=== PATIENT | male | born 1990 | race American Indian/Alaskan Native ===

== ENCOUNTER 2017-06-08 16:18 | Emergency (ER) | payer SELFPAY ==
[2017-06-08] MEDS ORDERED: D5NS 0.2% 1,000 ML IV SCH (17:00)
[2017-06-08] MEDS ORDERED: NACL 0.9% 1000 ML 1,000 ML IV ONE (21:37)
[2017-06-08] MEDS ORDERED: MORPHINE IV ONE ×2 (21:37→23:58)
[2017-06-08] MEDS ORDERED: BENADRYL IV ONE ×2 (21:37→23:58)
--- NOTE | 2017-06-08 21:39 | Emergency Department Report ---
ED General Adult HPI - General Chief complaint: Sickle Cell Crisis Stated complaint: SICKLE CELL CRISIS Time Seen by Provider: 06/08/17 21:02 Source: patient Mode of arrival: Ambulatory Limitations: No Limitations - History of Present Illness Initial comments: 26-year-old male here with sickle cell pain crisis. Patient states she has known sickle cell and takes hydroxyurea folic acid and oxycodone regularly. He started having pain approximately 2 days ago. Pain in the legs and arms. Denies chest pain. Denies shortness of breath. Denies fevers chills nausea vomiting. -: Gradual Location: upper extremity, lower extremity Radiation: non-radiation Quality: aching Consistency: constant Improves with: medication Worsens with: none Treatments Prior to Arrival: other - Related Data Home Medications Medication Instructions Recorded Confirmed Last Taken Folic Acid [Folvite] 1 mg PO QDAY 11/06/15 11/06/15 Unknown Previous Rx's Medication Instructions Recorded Last Taken Type Morphine ER [Ms Contin ER] 30 mg PO Q8HR #20 tablet 11/07/15 Unknown Rx oxyCODONE /ACETAMINOPHEN [Percocet 1 tab PO Q6H PRN #30 tablet 11/07/15 Unknown Rx 5/325 mg] Allergies Allergy/AdvReac Type Severity Reaction Status Date / Time ketorolac tromethamine Allergy Swelling Verified 06/08/17 16:50 [From Toradol] ED Review of Systems ROS: Stated complaint: SICKLE CELL CRISIS Other details as noted in HPI Comment: All other systems reviewed and negative Constitutional: denies: chills, fever Eyes: denies: eye pain, eye discharge, vision change ENT: denies: ear pain, throat pain Respiratory: denies: cough, shortness of breath, wheezing Cardiovascular: denies: chest pain, palpitations Endocrine: no symptoms reported Gastrointestinal: denies: abdominal pain, nausea, diarrhea Genitourinary: denies: urgency, dysuria Musculoskeletal: 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) - Family History Family history: no significant - Social History Smoking Status: Current Some Day Smoker Substance Use Type: Alcohol, Prescribed - Medications Home Medications: Home Medications Medication Instructions Recorded Confirmed Last Taken Type Folic Acid [Folvite] 1 mg PO QDAY 11/06/15 11/06/15 Unknown History Morphine ER [Ms Contin ER] 30 mg PO Q8HR #20 tablet 11/07/15 Unknown Rx oxyCODONE /ACETAMINOPHEN [Percocet 1 tab PO Q6H PRN #30 tablet 11/07/15 Unknown Rx 5/325 mg] ED Physical Exam - General Limitations: No Limitations General appearance: alert, in no apparent distress - Head Head exam: Present: atraumatic, normocephalic - Eye Eye exam: Present: normal appearance. Absent: scleral icterus, conjunctival injection - ENT ENT exam: Present: mucous membranes moist - Neck Neck exam: Present: normal inspection. Absent: lymphadenopathy - Respiratory Respiratory exam: Present: normal lung sounds bilaterally. Absent: respiratory distress - Cardiovascular Cardiovascular Exam: Present: regular rate, normal rhythm. Absent: systolic murmur, diastolic murmur, rubs, gallop - GI/Abdominal GI/Abdominal exam: Present: soft, normal bowel sounds - Rectal Rectal exam: Present: deferred - Extremities Exam Extremities exam: Present: normal inspection - Back Exam Back exam: Present: normal inspection - Neurological Exam Neurological exam: Present: alert, oriented X3 - Psychiatric Psychiatric exam: Present: normal affect, normal mood - Skin Skin exam: Present: warm, dry, intact, normal color. Absent: rash ED Course Vital Signs 06/08/17 06/08/17 06/08/17 16:52 23:14 23:44 Temperature 98.8 F Pulse Rate 95 H Respiratory 17 18 18 Rate Blood Pressure 128/86 O2 Sat by Pulse 100 Oximetry 06/08/17 23:55 Temperature Pulse Rate Respiratory 12 Rate Blood Pressure O2 Sat by Pulse 99 Oximetry ED Medical Decision Making - Lab Data Result diagrams: 06/08/17 22:15 06/08/17 22:15 Labs 06/08/17 06/08/17 22:15 22:15 WBC 9.9 RBC 4.38 Hgb 12.4 Hct 37.2 MCV 85 MCH 28 MCHC 33 RDW 16.3 H Plt Count 365 Lymph % (Auto) 30.6 [place] % (Auto) 9.0 H Eos % (Auto) 1.7 Baso % (Auto) 0.7 Lymph # 3.0 [place] # 0.9 H Eos # 0.2 Baso # 0.1 Seg Neutrophils % 58.0 Seg Neutrophils # 5.7 Percent Retic 3.03 H Sodium 141 Potassium 4.0 Chloride 103.6 Carbon Dioxide 23 Anion Gap 18 BUN 13 Creatinine 0.8 Estimated GFR > 60 BUN/Creatinine Ratio 16.25 Glucose 84 Calcium 9.0 - Medical Decision Making 18-year-old male here with sickle cell crisis. I do not suspect infection or acute chest syndrome. Plan to treat with IV fluids and IV narcotics. We will reassess. Patient feeling better after single round of medications. Plan to medicate with an initial round of medications and will likely discharge patient home. Portions of this chart were dictated with dictation software. There may be dictation errors contained within this note. Critical care attestation.: If time is entered above; I have spent that time in minutes in the direct care of this critically ill patient, excluding procedure time. ED Disposition Clinical Impression: Sickle cell pain crisis Disposition: DC-01 TO HOME OR SELFCARE Is pt being admited?: No Condition: Stable Instructions: Sickle Cell Crisis (ED) Additional Instructions: Please follow up with your regular doctor Referrals: PRIMARY MD ASIA [Primary Care Provider] - 3-5 Days
[2017-06-08 22:30] LABS: Basophils % (Auto) 0.7 % (0.0-1.8); Eosinophils % (Auto) 1.7 % (0.0-4.3); Hematocrit 37.2 % (35.5-45.6); Hemoglobin 12.4 gm/dl (11.8-15.2); Mean Corpuscular HGB Conc 33 % (32-34); Mean Corpuscular Hemoglobin 28 pg (28-32); Mean Corpuscular Volume 85 fl (84-94); Platelet Count 365 K/mm3 (140-440); Red Blood Count 4.38 M/mm3 (3.65-5.03); Red Cell Distribution Width 16.3 % (13.2-15.2); Reticulocyte % 3.03 % (0.78-2.58); White Blood Count 9.9 K/mm3 (4.5-11.0)
[2017-06-08 22:40] LABS: Anion Gap 18 mmol/L; BUN/Creatinine Ratio 16.25; Blood Urea Nitrogen 13 mg/dL (9-20); Carbon Dioxide 23 mmol/L (22-30); Chloride 103.6 mmol/L (98-107); Glucose 84 mg/dL (75-100); Sodium 141 mmol/L (137-145)
[2017-06-09 01:34] VITALS: BP 126/82
== END 2017-06-09 01:41 | disposition home or self-care (01) ==
LOC: ED 16:18
DX: D57.00 Hb-SS disease with crisis, unspecified (principal); F17.210 Nicotine dependence, cigarettes, uncomplicated; Z88.6 Allergy status to analgesic agent
CPT/HCPCS: 36415; 80048; 85025; 85045; 96361; 96374; 96375; 99283; J1200; J2270; J7030

== ENCOUNTER 2017-08-06 23:34 | Emergency (ER) | payer MEDICAID ==
[2017-08-06 23:50] VITALS: BP 114/74
== END 2017-08-07 | disposition left against medical advice (07) ==
LOC: ED 23:34
DX: Z53.21 Procedure and treatment not carried out due to patient leaving prior to being seen by health care provider (principal)

== ENCOUNTER 2017-08-07 18:24 | Emergency (ER) | payer SELFPAY ==
[2017-08-07] MEDS ORDERED: D5NS 0.2% 1,000 ML IV SCH (19:00)
[2017-08-07 19:10] LABS: Eosinophils % (Auto) 1.7 % (0.0-4.3); Hematocrit 39.2 % (35.5-45.6); Hemoglobin 12.8 gm/dl (11.8-15.2); Mean Corpuscular HGB Conc 33 % (32-34); Mean Corpuscular Hemoglobin 28 pg (28-32); Mean Corpuscular Volume 85 fl (84-94); Platelet Count 403 K/mm3 (140-440); Red Blood Count 4.59 M/mm3 (3.65-5.03); Red Cell Distribution Width 15.4 % (13.2-15.2); Reticulocyte % 3.34 % (0.78-2.58); White Blood Count 12.3 K/mm3 (4.5-11.0)
[2017-08-08] MEDS ORDERED: BENADRYL IV ONE (02:09)
[2017-08-08] MEDS ORDERED: DILAUDID IV ONE ×3 (02:09→02:57)
[2017-08-08] MEDS ORDERED: PHENERGAN PO ONE (02:10)
--- NOTE | 2017-08-08 03:11 | Emergency Department Report ---
ED General Adult HPI - General Chief complaint: Sickle Cell Crisis Stated complaint: SICKLE CELL CRISIS Time Seen by Provider: 08/08/17 02:54 Source: patient Mode of arrival: Ambulatory Limitations: No Limitations - History of Present Illness Initial comments: 26-year-old male the past medical history of pulmonary embolism and sickle beta thalassemia and previous splenectomy presents to the hospital complaints of sickle cell crisis since yesterday. Patient complains of pain to bilateral legs and right arm. Pain is constant, rated myself as 10 in intensity without aggravating or alleviating factors. Patient continue oxycodone without relief. Patient also takes penicillin for splenectomy. Patient denies fever, chest pain, shortness of breath, or weakness. PMD: [facility] Severity scale (0 -10): 6 - Related Data Home Medications Medication Instructions Recorded Confirmed Last Taken Folic Acid [Folvite] 1 mg PO QDAY 11/06/15 11/06/15 Unknown Previous Rx's Medication Instructions Recorded Last Taken Type Morphine ER [Ms Contin ER] 30 mg PO Q8HR #20 tablet 11/07/15 Unknown Rx oxyCODONE /ACETAMINOPHEN [Percocet 1 tab PO Q6H PRN #30 tablet 11/07/15 Unknown Rx 5/325 mg] Allergies Allergy/AdvReac Type Severity Reaction Status Date / Time ketorolac tromethamine Allergy Swelling Verified 06/08/17 16:50 [From Toradol] ED Review of Systems ROS: Stated complaint: SICKLE CELL CRISIS Other details as noted in HPI Comment: All other systems reviewed and negative Other: Constitutional: No fevers chills Eyes: No eye pain visual changes ENT: No ear pain or throat pain Neck: Denies pain Respiratory: Denies cough wheezing shortness of breath Cardiovascular: Denies chest pain, palpitations, syncope GI: Denies abdominal pain, nausea, vomiting, diarrhea : Denies dysuria Musculoskeletal: As per HPI Skin: Denies rash, lesions, erythema Neurologic: Denies headache, numbness, weakness Psychiatric: Denies suicidal ideation, hallucinations ED Past Medical Hx - Past Medical History Hx Diabetes: No Hx Pulmonary Embolism: Yes 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) Hx Asthma: No Hx COPD: No Additional medical history: PE 2013 - Surgical History 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) - Social History Smoking Status: Never Smoker Substance Use Type: None - Medications Home Medications: Home Medications Medication Instructions Recorded Confirmed Last Taken Type Folic Acid [Folvite] 1 mg PO QDAY 11/06/15 11/06/15 Unknown History Morphine ER [Ms Contin ER] 30 mg PO Q8HR #20 tablet 11/07/15 Unknown Rx oxyCODONE /ACETAMINOPHEN [Percocet 1 tab PO Q6H PRN #30 tablet 11/07/15 Unknown Rx 5/325 mg] ED Physical Exam - General Limitations: No Limitations - Other Other exam information: General: No limitations, patient is alert in no acute distress Head exam: Atraumatic, normocephalic Eyes exam: Normal appearance, ENT: Moist mucous membrane, normal oropharynx Neck exam: Normal inspection, full range of motion, no meningismus nontender Respiratory exam: Clear to auscultation bilateral, no wheezes, rales, crackles Cardiovascular: Normal rate and rhythm, normal heart sounds Abdomen: Soft, nondistended, and nontender, with normal bowel sounds, no rebound, or guarding Extremity: Full range of motion normal inspection no deformity Back: Normal Inspection, full range of motion, no tenderness Neurologic: Alert, oriented x3, cranial nerves intact, no motor or sensory deficit Psychiatric: normal affect, normal mood Skin: Warm, dry, intact ED Course Vital Signs 08/07/17 08/08/17 18:31 02:15 Temperature 99.5 F 98.4 F Pulse Rate 85 68 Respiratory 20 18 Rate Blood Pressure 115/76 Blood Pressure 127/90 [Left] O2 Sat by Pulse 99 98 Oximetry - Reevaluation(s) Reevaluation #1: 08/08/17 03:10 Patient received 3 separate doses of Dilaudid 1 mg, Phenergan, and Benadryl with improvement in symptoms ED Medical Decision Making - Lab Data Result diagrams: 08/07/17 18:41 Lab Results 08/07/17 08/07/17 Range/Units 18:41 18:47 WBC 12.3 H (4.5-11.0) K/mm3 RBC 4.59 (3.65-5.03) M/mm3 Hgb 12.8 (11.8-15.2) gm/dl Hct 39.2 (35.5-45.6) % MCV 85 (84-94) fl MCH 28 (28-32) pg MCHC 33 (32-34) % RDW 15.4 H (13.2-15.2) % Plt Count 403 (140-440) K/mm3 Lymph % (Auto) 23.1 (13.4-35.0) % [place] % (Auto) 5.5 (0.0-7.3) % Eos % (Auto) 1.7 (0.0-4.3) % Baso % (Auto) 1.0 (0.0-1.8) % Lymph # 2.8 (1.2-5.4) K/mm3 [place] # 0.7 (0.0-0.8) K/mm3 Eos # 0.2 (0.0-0.4) K/mm3 Baso # 0.1 (0.0-0.1) K/mm3 Seg Neutrophils % 68.7 (40.0-70.0) % Seg Neutrophils # 8.4 H (1.8-7.7) K/mm3 Percent Retic 3.34 H (0.78-2.58) % Blood Type AB POSITIVE Antibody Screen TNR [place] Antibody Screen Negative - Medical Decision Making Patient has elevation of the tick count. No significant leukocytosis. No anemia. Patient feels better with ED treatment and wants to go home and continue his current Percocet and [facility] follow-up - Differential Diagnosis sickle cell crisis, anemia, infection, aplastic crisis Critical Care Time: No Critical care attestation.: If time is entered above; I have spent that time in minutes in the direct care of this critically ill patient, excluding procedure time. ED Disposition Clinical Impression: Sickle cell crisis Disposition: TO HOME OR SELFCARE Is pt being admited?: No Does the pt Need Aspirin: No Condition: Stable Instructions: Sickle Cell Crisis (ED) Additional Instructions: Continue current Percocet and follow-up with your [facility] physician. Return if symptoms worsen as indicated by her discharged instructions Referrals: anisa bajwa md [Other] - 3-5 Days Time of Disposition: 03:11
[2017-08-08 11:27] VITALS: BP 124/74
== END 2017-08-08 03:19 | disposition home or self-care (01) ==
LOC: ED 18:24
DX: D57.00 Hb-SS disease with crisis, unspecified (principal); Z88.6 Allergy status to analgesic agent
CPT/HCPCS: 36415; 85025; 85045; 86850; 86900; 86901; 96374; 96375; 96376; 99283; J1170; J1200; Q0169

== ENCOUNTER 2017-10-31 18:53 | Emergency (ER) | payer MEDICAID ==
[2017-10-31 20:30] VITALS: BP 110/65
[2017-10-31] MEDS ORDERED: D5NS 0.2% 1,000 ML IV SCH (21:00)
== END 2017-10-31 23:30 | disposition left against medical advice (07) ==
LOC: ED 18:53
DX: Z53.21 Procedure and treatment not carried out due to patient leaving prior to being seen by health care provider (principal)

== ENCOUNTER 2018-01-21 09:17 | Emergency (ER) | payer MEDICAID ==
--- NOTE | 2018-01-21 10:50 | Emergency Department Report ---
ED General Adult HPI - General Chief complaint: Sickle Cell Crisis Stated complaint: SICKLE CELL PAIN Time Seen by Provider: 01/21/18 10:49 Source: patient Mode of arrival: Ambulatory Limitations: No Limitations - History of Present Illness Initial comments: Patient is a 27-year-old male with history of sickle cell anemia who presents with sickle cell pain. Patient states that he has pain in his legs and his arms and his back. The pain is an 8 out of 10 achy pain that does not radiate nothing makes it better or worse. Patient states the pain is typical for his sickle cell pain. He also states that he has some nausea and vomiting. 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 - Related Data Home Medications Medication Instructions Recorded Confirmed Last Taken Folic Acid [Folvite] 1 mg PO QDAY 11/06/15 11/06/15 Unknown Previous Rx's Medication Instructions Recorded Last Taken Type Morphine ER [Ms Contin ER] 30 mg PO Q8HR #20 tablet 11/07/15 Unknown Rx oxyCODONE /ACETAMINOPHEN [Percocet 1 tab PO Q6H PRN #30 tablet 11/07/15 Unknown Rx 5/325 mg] Allergies Allergy/AdvReac Type Severity Reaction Status Date / Time ketorolac tromethamine Allergy Swelling Verified 06/08/17 16:50 [From Toradol] ED Review of Systems ROS: Stated complaint: SICKLE CELL PAIN Other details as noted in HPI Constitutional: denies: chills, fever Eyes: denies: eye pain, eye discharge, vision change ENT: denies: ear pain, throat pain Respiratory: denies: cough, shortness of breath, wheezing Cardiovascular: denies: chest pain, palpitations Endocrine: no symptoms reported Gastrointestinal: denies: abdominal pain, nausea, diarrhea Genitourinary: denies: urgency, dysuria Musculoskeletal: myalgia. 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) - Social History Smoking Status: Never Smoker Substance Use Type: None - Medications Home Medications: Home Medications Medication Instructions Recorded Confirmed Last Taken Type Folic Acid [Folvite] 1 mg PO QDAY 11/06/15 11/06/15 Unknown History Morphine ER [Ms Contin ER] 30 mg PO Q8HR #20 tablet 11/07/15 Unknown Rx oxyCODONE /ACETAMINOPHEN [Percocet 1 tab PO Q6H PRN #30 tablet 11/07/15 Unknown Rx 5/325 mg] ED Physical Exam - General Limitations: No Limitations General appearance: alert, in no apparent distress - Head Head exam: Present: atraumatic, normocephalic - Eye Eye exam: Present: normal appearance - ENT ENT exam: Present: mucous membranes moist - Neck Neck exam: Present: normal inspection - Respiratory Respiratory exam: Present: normal lung sounds bilaterally. Absent: respiratory distress - Cardiovascular Cardiovascular Exam: Present: regular rate, normal rhythm, other (right chest port ). Absent: systolic murmur, diastolic murmur, rubs, gallop - GI/Abdominal GI/Abdominal exam: Present: soft, normal bowel sounds - Rectal Rectal exam: Present: deferred - Extremities Exam Extremities exam: Present: normal inspection - Back Exam Back exam: Present: normal inspection - Neurological Exam Neurological exam: Present: alert, oriented X3 - Psychiatric Psychiatric exam: Present: normal affect, normal mood - Skin Skin exam: Present: warm, dry, intact, normal color. Absent: rash ED Course Vital Signs 01/21/18 01/21/18 01/21/18 10:04 11:27 12:56 Temperature 99.7 F H 98.6 F Pulse Rate 84 77 74 Respiratory 20 18 18 Rate Blood Pressure 114/73 Blood Pressure 164/42 [Right] O2 Sat by Pulse 98 Oximetry - Reevaluation(s) Reevaluation #1: 01/21/18 12:01 Pt's pain has improved ED Medical Decision Making - Lab Data Result diagrams: 01/21/18 Unknown Lab Results 01/21/18 Range/Units Unknown WBC 5.8 (4.5-11.0) K/mm3 RBC 3.81 (3.65-5.03) M/mm3 Hgb 10.5 L (11.8-15.2) gm/dl Hct 32.1 L (35.5-45.6) % MCV 84 (84-94) fl MCH 28 (28-32) pg MCHC 33 (32-34) % RDW 16.3 H (13.2-15.2) % Plt Count 484 H (140-440) K/mm3 Add Manual Diff Complete Total Counted 100 Seg Neuts % (Manual) 59.0 (40.0-70.0) % Band Neutrophils % 1.0 % Lymphocytes % (Manual) 26.0 (13.4-35.0) % Reactive Lymphs % (Man) 3.0 % Monocytes % (Manual) 9.0 H (0.0-7.3) % Eosinophils % (Manual) 0 (0.0-4.3) % Basophils % (Manual) 2.0 H (0.0-1.8) % Metamyelocytes % 0 % Myelocytes % 0 % Promyelocytes % 0 % Blast Cells % 0 % Nucleated RBC % 3.0 H (0.0-0.9) % Seg Neutrophils # Man 0.0 L (1.8-7.7) K/mm3 Band Neutrophils # 0.0 K/mm3 Lymphocytes # (Manual) 0.0 L (1.2-5.4) K/mm3 Abs React Lymphs (Man) 0.0 K/mm3 Monocytes # (Manual) 0.0 (0.0-0.8) K/mm3 Eosinophils # (Manual) 0.0 (0.0-0.4) K/mm3 Basophils # (Manual) 0.0 (0.0-0.1) K/mm3 Metamyelocytes # 0.0 K/mm3 Myelocytes # 0.0 K/mm3 Promyelocytes # 0.0 K/mm3 Blast Cells # 0.0 K/mm3 WBC Morphology Not Reportable Hypersegmented Neuts Not Reportable Hyposegmented Neuts Not Reportable Hypogranular Neuts Not Reportable Smudge Cells Not Reportable Toxic Granulation Not Reportable Toxic Vacuolation Not Reportable Dohle Bodies Not Reportable Pelger-Huet Anomaly Not Reportable Yaima Rods Not Reportable Platelet Estimate Appears normal Clumped Platelets Not Reportable Plt Clumps, EDTA Not Reportable Large Platelets Not Reportable Giant Platelets Not Reportable Platelet Satelliting Not Reportable Plt Morphology Comment Not Reportable RBC Morphology Not Reportable Dimorphic RBCs Not Reportable Polychromasia Not Reportable Hypochromasia Not Reportable Poikilocytosis Not Reportable Anisocytosis 1+ Microcytosis Not Reportable Macrocytosis Not Reportable Spherocytes Not Reportable Pappenheimer Bodies Not Reportable Sickle Cells Not Reportable Target Cells Few Tear Drop Cells Few Ovalocytes 1+ Helmet Cells Not Reportable [place] Bodies Not Reportable [place] Rings Not Reportable Iker Cells Few Bite Cells Not Reportable Crenated Cell Not Reportable Elliptocytes Rare Acanthocytes (Spur) Not Reportable Rouleaux Not Reportable Hemoglobin C Crystals Not Reportable Schistocytes Rare Malaria parasites Not Reportable Percent Retic 5.58 H (0.78-2.58) % Immature Retic Fraction 0.67 Lonnie Bodies Not Reportable Hem Pathologist Commnt No - Medical Decision Making Cdx: Sickle cell pain crisis ddx: Vaso-occulsive crisis, Myalgia I will get cbc, reticulocyte count and bmp, IV pain medication and IV antiemetics and IV fluids. is feeling better I will send patient home to follow up with his management department chair.I will send patient home additional verbal discharge instructions were given. Critical care attestation.: If time is entered above; I have spent that time in minutes in the direct care of this critically ill patient, excluding procedure time. ED Disposition Clinical Impression: Sickle cell crisis Disposition: DC-01 TO HOME OR SELFCARE Is pt being admited?: No Does the pt Need Aspirin: No Condition: Stable Instructions: Sickle Cell Crisis (ED) Referrals: SANFORD BRADEN MD [Staff Physician] - 3-5 Days
[2018-01-21] MEDS ORDERED: D5NS 0.2% 1,000 ML IV SCH (11:00)
[2018-01-21] MEDS ORDERED: DILAUDID IV ONE ×2 (11:09→12:18)
[2018-01-21] MEDS ORDERED: NORCO 10/325 PO ONE (11:10)
[2018-01-21] MEDS ORDERED: DILAUDID ONE ×2 (11:47)
[2018-01-21] MEDS ORDERED: BENADRYL PO ONE (11:54)
[2018-01-21] MEDS ORDERED: ZOFRAN IV ONE (11:58)
[2018-01-21 12:12] LABS: Hematocrit 32.1 % (35.5-45.6); Hemoglobin 10.5 gm/dl (11.8-15.2); Mean Corpuscular HGB Conc 33 % (32-34); Mean Corpuscular Hemoglobin 28 pg (28-32); Mean Corpuscular Volume 84 fl (84-94); Mean Platelet Volume 8.2 fl (6-12); Platelet Count 484 K/mm3 (140-440); Red Blood Count 3.81 M/mm3 (3.65-5.03); Red Cell Distribution Width 16.3 % (13.2-15.2)
[2018-01-21 12:31] LABS: Eosinophils % (Manual) 0 % (0.0-4.3); Total Cells Counted 100
[2018-01-21 12:32] LABS: Anisocytosis 1+
[2018-01-21 12:33] LABS: Burr Cells Few; Ovalocytes 1+; Schistocytes Rare; Target Cells Few; Tear Drop Cells Few
[2018-01-21] MEDS ORDERED: FLUSH HEPARIN IV ONE (12:41)
[2018-01-21 12:57] VITALS: BP 164/42
== END 2018-01-21 12:56 | disposition home or self-care (01) ==
LOC: ED 09:17
DX: D57.219 Sickle-cell/Hb-C disease with crisis, unspecified (principal); R11.2 Nausea with vomiting, unspecified; Z88.8 Allergy status to other drugs, medicaments and biological substances; Z86.711 Personal history of pulmonary embolism; Z90.81 Acquired absence of spleen
CPT/HCPCS: 36415; 85007; 85025; 85045; 96365; 96375; 99283; J1170; J1642; J2405

== ENCOUNTER 2018-02-03 12:24 | Emergency (ER) | payer MEDICAID ==
[2018-02-03] MEDS ORDERED: D5NS 0.2% 1,000 ML IV SCH (13:00)
[2018-02-03 13:20] VITALS: BP 116/64
[2018-02-03 13:39] LABS: Basophils # (Auto) 0.1 K/mm3 (0.0-0.1); Basophils % (Auto) 1.1 % (0.0-1.8); Eosinophils # (Auto) 0.2 K/mm3 (0.0-0.4); Eosinophils % (Auto) 1.7 % (0.0-4.3); Hematocrit 33.7 % (35.5-45.6); Hemoglobin 10.7 gm/dl (11.8-15.2); Lymphocytes # (Auto) 1.4 K/mm3 (1.2-5.4); Lymphocytes % (Auto) 11.5 % (13.4-35.0); Mean Corpuscular HGB Conc 32 % (32-34); Mean Corpuscular Hemoglobin 26 pg (28-32); Mean Corpuscular Volume 83 fl (84-94); Monocytes # (Auto) 0.7 K/mm3 (0.0-0.8); Monocytes % (Auto) 5.8 % (0.0-7.3); Platelet Count 459 K/mm3 (140-440); Red Blood Count 4.08 M/mm3 (3.65-5.03); Red Cell Distribution Width 16.5 % (13.2-15.2)
[2018-02-03] MEDS ORDERED: NORCO 10/325 PO ONE (13:48)
--- NOTE | 2018-02-03 14:47 | Emergency Department Report ---
ED General Adult HPI - General Chief complaint: Sickle Cell Crisis Stated complaint: SICKLE CELL PAIN Time Seen by Provider: 02/03/18 13:43 Source: patient Mode of arrival: Ambulatory Limitations: No Limitations - History of Present Illness Initial comments: Patient is having pain in his legs, arms, and back that started yesterday. He took one [place] last night for the pain, without review. Has not tried any pain medication today. -: days(s) (1) Location: lower extremity Severity scale (0 -10): 9 Quality: aching Consistency: constant Improves with: none Worsens with: none Associated Symptoms: denies other symptoms Treatments Prior to Arrival: none - Related Data Home Medications Medication Instructions Recorded Confirmed Last Taken Folic Acid [Folvite] 1 mg PO QDAY 11/06/15 11/06/15 Unknown Previous Rx's Medication Instructions Recorded Last Taken Type Morphine ER [Ms Contin ER] 30 mg PO Q8HR #20 tablet 11/07/15 Unknown Rx oxyCODONE /ACETAMINOPHEN [Percocet 1 tab PO Q6H PRN #30 tablet 11/07/15 Unknown Rx 5/325 mg] Allergies Allergy/AdvReac Type Severity Reaction Status Date / Time ketorolac tromethamine Allergy Swelling Verified 06/08/17 16:50 [From Toradol] ED Review of Systems ROS: Stated complaint: SICKLE CELL PAIN Other details as noted in HPI Comment: All other systems reviewed and negative Constitutional: denies: chills, fever Eyes: denies: eye pain, eye discharge, vision change ENT: denies: ear pain, throat pain Respiratory: denies: cough, shortness of breath, wheezing Cardiovascular: denies: chest pain, palpitations Endocrine: no symptoms reported Gastrointestinal: denies: abdominal pain, nausea, diarrhea Genitourinary: denies: urgency, dysuria Musculoskeletal: back pain, arthralgia, myalgia. 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) - Social History Smoking Status: Never Smoker Substance Use Type: Alcohol - Medications Home Medications: Home Medications Medication Instructions Recorded Confirmed Last Taken Type Folic Acid [Folvite] 1 mg PO QDAY 11/06/15 11/06/15 Unknown History Morphine ER [Ms Contin ER] 30 mg PO Q8HR #20 tablet 11/07/15 Unknown Rx oxyCODONE /ACETAMINOPHEN [Percocet 1 tab PO Q6H PRN #30 tablet 11/07/15 Unknown Rx 5/325 mg] ED Physical Exam - General Limitations: No Limitations General appearance: alert, in no apparent distress - Head Head exam: Present: atraumatic, normocephalic - Eye Eye exam: Present: normal appearance - ENT ENT exam: Present: mucous membranes moist - Neck Neck exam: Present: normal inspection - Respiratory Respiratory exam: Present: normal lung sounds bilaterally. Absent: respiratory distress - Cardiovascular Cardiovascular Exam: Present: regular rate, normal rhythm. Absent: systolic murmur, diastolic murmur, rubs, gallop - GI/Abdominal GI/Abdominal exam: Present: soft, normal bowel sounds - Rectal Rectal exam: Present: deferred - Extremities Exam Extremities exam: Present: normal inspection, full ROM, normal capillary refill. Absent: pedal edema, joint swelling, calf tenderness - Back Exam Back exam: Present: normal inspection - Neurological Exam Neurological exam: Present: alert, oriented X3 - Psychiatric Psychiatric exam: Present: normal affect, normal mood - Skin Skin exam: Present: warm, dry, intact, normal color. Absent: rash ED Course Vital Signs 02/03/18 02/03/18 02/03/18 12:30 13:19 13:20 Temperature 99.3 F 98.6 F Pulse Rate 98 H 78 Respiratory 17 20 20 Rate Blood Pressure 104/75 Blood Pressure 116/64 [Left] O2 Sat by Pulse 99 100 Oximetry - Reevaluation(s) Reevaluation #1: 02/03/18 14:51 Patient given [place] 5. He does not feel his pain has improved. ED Medical Decision Making - Lab Data Result diagrams: 02/03/18 Unknown - Medical Decision Making Patient's pain is partially relieved. He will be instructed to follow up with his PCP for reevaluation. Critical care attestation.: If time is entered above; I have spent that time in minutes in the direct care of this critically ill patient, excluding procedure time. ED Disposition Clinical Impression: Sickle cell anemia with pain Disposition: DC-01 TO HOME OR SELFCARE Is pt being admited?: No Does the pt Need Aspirin: No Condition: Stable Additional Instructions: continue with current home medication of Percocet.
== END 2018-02-03 16:37 | disposition home or self-care (01) ==
LOC: ED 12:24
DX: D57.1 Sickle-cell disease without crisis (principal); Z88.6 Allergy status to analgesic agent
CPT/HCPCS: 36415; 85025; 85045; 96360; 99283